=== PATIENT | male | born 1960 | race Caucasian/White ===

== ENCOUNTER → 2016-12-25 | Outpatient (CLI) | payer BC, OTHER ==
[~2016-12-25] MED LIST: ACETYLCYSTE200 MG/M2 INH; ACIPHEX 20 MG T20 MG PO; ADVAIR 250-501 EACH INH; ADVAIR 500-501 EACH INH; ALBUTEROL2.5 MG/0.1 INH; AZITHROMYCIN 2250 MG PO; BACTRIM DS TAB1 EACH PO; CEFTIN500 MG PO; CYTOTEC100 MCG PO; ENBREL INJ; ENBREL SUBQ; FISH OIL 1,0001 EAC5 PO; FLONASE 0.05%50 MCG INH; FORTEO PEN750 MCG/3 INJ; LIPITOR20 MG PO; MUCINEX TA600 MG/TA1 PO; NYSTATIN 1100000 U/M PO; OSELB75 PO; PLAVIX 75 MG TA75 MG PO; PREDNISONE 10 M10 M1; PROTONIX40 M2 PO; RELAFEN500 MG PO; SALAGEN5 MG PO; ZPAK PO
== END ==
LOC: RAD 11:43
DX: J43.9 Emphysema, unspecified (principal); J47.9 Bronchiectasis, uncomplicated

== ENCOUNTER 2017-05-12 00:11 | Emergency (ER) | payer BC, OTHER ==
[~2017-05-12] VITALS: Ht 175.3 cm; Wt 68.0 kg
[2017-05-12] MEDS ORDERED: RITUXAN100 MG/10 IV (00:38)
[2017-05-12] MEDS ORDERED: SPIRIVA INH (00:38)
[2017-05-12] MEDS ORDERED: DIFLUCAN200 MG PO (00:38)
== END 2017-05-12 03:08 | disposition home or self-care (01) ==
LOC: ER 00:11
DX: S09.8XXA Other specified injuries of head, initial encounter (principal); M06.9 Rheumatoid arthritis, unspecified; G47.30 Sleep apnea, unspecified; E78.00 Pure hypercholesterolemia, unspecified; Z88.8 Allergy status to other drugs, medicaments and biological substances; F10.10 Alcohol abuse, uncomplicated; W22.8XXA Striking against or struck by other objects, initial encounter; Y93.89 Activity, other specified; Y92.39 Other specified sports and athletic area as the place of occurrence of the external cause; Y99.8 Other external cause status